=== PATIENT | male | born 1990 | race Two or more races ===

== ENCOUNTER 2016-05-06 12:12 | Emergency (ER) | payer OTHER ==
[~2016-05-06] VITALS: Ht 198.1 cm; Wt 135.7 kg
[~2016-05-06 12:12] MED LIST: ADDERALL XR 1515 MG PO; ADDERALL XR 2020 MG PO; ADDERALL XR 2525 MG PO; AMBIEN10 MG PO; ATIVAN2 MG PO; BENZTROPINE MESY1 MG PO; CARTIA XT120 MG PO; CHLORDIAZEPOXID25 MG PO; CLARITIN10 M3 PO; CLONIDINE PO; CONCERTA18 MG PO; CONCERTA27 MG PO; DESYREL 150 MG150 MG PO; DESYREL100 MG PO; FLONASE16 G1 BOTH NARES; FOLIC ACID1 MG PO; GABAPENTIN100 MG PO; HYDROCHLOROTHIA25 MG PO; KLONOPIN1 MG PO; LATUDA80 MG PO; LEVAQUIN500 MG PO; LIBRIUM25 MG PO; LISINOPRIL20 MG PO; MELOXICAM15 MG PO; MOTRIN600 MG PO; MOTRIN800 MG PO; MUCINEX D ER T1 EACH PO; NAPROSYN500 MG PO; NEURONTIN600 MG PO; NICOTINE PATCH1 EAC2 TD; OXYCODONE HCL10 MG PO; PAXIL10 MG PO; PAXIL20 MG PO; PERCOCET 10/1 TABLET PO; PREDNISONE10 M1 PO; PROPRANOLOL HCL60 MG PO; QUETIAPINE FUM200 MG PO; RISPERDAL1 MG PO; ROBITUSSIN100 MG/5 M PO; SERTRALINE HCL50 MG PO; TESSALON PERLE100 MG PO; THIAMINE HCL100 MG PO; TORADOL10 MG PO; TRAMADOL HCL50 MG PO; Thiamine,Vitamin B1 PO; ULTRACET1 TABLET PO; ULTRAM50 MG PO; VALIUM5 MG PO; VYVANSE30 MG PO; VYVANSE50 MG PO; ZOLOFT100 MG PO; ZOLPIDEM TARTRA10 MG PO
[2016-05-06 12:46] VITALS: BP 148/93
== END 2016-05-06 15:18 | disposition home or self-care (01) ==
LOC: RME 12:12 → EME 12:12 → RME 15:18
DX: J02.9 Acute pharyngitis, unspecified (principal); J03.90 Acute tonsillitis, unspecified; I10 Essential (primary) hypertension; F90.9 Attention-deficit hyperactivity disorder, unspecified type; F31.9 Bipolar disorder, unspecified; F17.200 Nicotine dependence, unspecified, uncomplicated
CPT/HCPCS: 87651 90; 99281; 99283; J1100

== ENCOUNTER 2016-05-19 18:50 | Emergency (ER) | payer OTHER ==
[~2016-05-19] VITALS: Ht 198.1 cm; Wt 138.5 kg
[2016-05-19 20:04] LABS: CHLORIDE 107 mEq/L (99-109); POTASSIUM 4.3 mEq/L (3.7-5.4); SODIUM 140 mEq/L (136-147)
[2016-05-19 20:06] LABS: GLUCOSE 102 mg/dL (70-99); HEMATOCRIT 42.9 % (38.0-50.0); MCH 30.8 PG (29.0-34.0); MCHC 34.7 G/DL (30.0-36.0); MCV 88.6 FL (86-99); MEAN PLAT.VOLUME 9.7 uM^3 (9.0-12.4); PLATELET COUNT 283 K/uL (156-360); RBC DIS.WIDTH-CV 14.8 % (11.8-14.6); RBC DIS.WIDTH-SD 47.8 % (39-53); RED BLOOD COUNT 4.84 M/uL (4.00-5.50); WHITE BLOOD COUNT 15.8 K/uL (4.1-10.2)
[2016-05-19 20:07] LABS: ANION GAP 13 MEQ/L (2-14)
[2016-05-19 20:10] LABS: GFR ESTIMATE (CALCULATED) > 59 mL/min/
[2016-05-19 20:11] LABS: UREA NITROGEN (BUN) 11 mg/dL (9-23)
[2016-05-19 20:56] LABS: TOTAL BILIRUBIN 0.1 mg/dL (0.0-1.0)
[2016-05-19 20:57] LABS: ALKALINE PHOSPHATASE 99 IU/L (3-129)
[2016-05-19 21:00] LABS: DIRECT BILIRUBIN 0.1 mg/dL (0.0-0.3)
[2016-05-19 21:02] LABS: D-DIMER ELISA 0.32 mg/L FEU (< 0.57)
[2016-05-19 21:25] LABS: ADD MIUA? NO; BILIRUBIN NEGATIVE; BLOOD NEGATIVE; COLOR YELLOW ((YELLOW)); GLUCOSE (STRIP) NEGATIVE; KETONES NEGATIVE; LEUKOCYTES NEGATIVE; NITRITE NEGATIVE; PROTEIN (STRIP) NEGATIVE; SPECIFIC GRAVITY 1.024 (1.000-1.030)
[2016-05-19 21:35] LABS: INFLUENZA A VIRAL ANTIGEN NEGATIVE; INFLUENZA B VIRAL ANTIGEN NEGATIVE
[2016-05-19 21:44] LABS: INTERNAL CONTROL VALID? YES; MONOSPOT (MONONUCLEOSIS SEROL) NEGATIVE
[2016-05-19] MEDS ORDERED: PREDNISONE20 MG PO (22:56)
[2016-05-19] MEDS ORDERED: TESSALON PERLE100 MG PO (22:56)
[2016-05-19] MEDS ORDERED: MOTRIN800 MG PO (22:56)
[2016-05-19] MEDS ORDERED: MUCINEX D ER T1 EACH PO (23:11)
[2016-05-19 23:26] VITALS: BP 141/91
== END 2016-05-19 23:28 | disposition home or self-care (01) ==
LOC: RME 18:50 → EME 18:50 → RME 23:28
PROVIDERS: Physician Assistant
DX: J06.9 Acute upper respiratory infection, unspecified (principal); J02.9 Acute pharyngitis, unspecified; E78.5 Hyperlipidemia, unspecified; I10 Essential (primary) hypertension; F17.200 Nicotine dependence, unspecified, uncomplicated; Z88.6 Allergy status to analgesic agent
CPT/HCPCS: 71020; 80048; 80076; 81003; 85027; 85379; 86308; 86664; 86665; 87502; 87651 90; 99281; 99285; J2930; J7030; J7512

== ENCOUNTER 2016-05-21 11:05 | Emergency (ER) | payer OTHER ==
[~2016-05-21] VITALS: Ht 198.1 cm; Wt 142.2 kg
[~2016-05-21 11:05] MED LIST changes: +PREDNISONE20 MG PO
[2016-05-21 11:50] LABS: HEMATOCRIT 41.6 % (38.0-50.0); MCH 30.7 PG (29.0-34.0); MCHC 34.6 G/DL (30.0-36.0); MCV 88.7 FL (86-99); MEAN PLAT.VOLUME 9.5 uM^3 (9.0-12.4); PLATELET COUNT 273 K/uL (156-360); RBC DIS.WIDTH-CV 15.2 % (11.8-14.6); RBC DIS.WIDTH-SD 49.1 % (39-53); RED BLOOD COUNT 4.69 M/uL (4.00-5.50); WHITE BLOOD COUNT 14.5 K/uL (4.1-10.2)
[2016-05-21 11:57] LABS: CHLORIDE 110 mEq/L (99-109); POTASSIUM 4.2 mEq/L (3.7-5.4); SODIUM 141 mEq/L (136-147)
[2016-05-21 12:00] LABS: GLUCOSE 107 mg/dL (70-99)
[2016-05-21 12:01] LABS: ANION GAP 10 MEQ/L (2-14)
[2016-05-21 12:02] LABS: TOTAL BILIRUBIN 0.1 mg/dL (0.0-1.0)
[2016-05-21 12:03] LABS: ALKALINE PHOSPHATASE 82 IU/L (3-129); GFR ESTIMATE (CALCULATED) > 59 mL/min/
[2016-05-21 12:04] LABS: UREA NITROGEN (BUN) 10 mg/dL (9-23)
[2016-05-21 12:06] LABS: CREATINE KINASE 94 IU/L (1-294)
[2016-05-21 13:31] LABS: ADD MIUA? NO; BILIRUBIN NEGATIVE; BLOOD NEGATIVE; COLOR YELLOW ((YELLOW)); GLUCOSE (STRIP) NEGATIVE; KETONES NEGATIVE; LEUKOCYTES NEGATIVE; NITRITE NEGATIVE; PH, URINE 5.5 (5-8); PROTEIN (STRIP) NEGATIVE; SPECIFIC GRAVITY 1.026 (1.000-1.030); UCUL ADDED? NO; UROBILINOGEN 0.2 MG/DL (0.2-1.0)
[2016-05-21 13:55] LABS: ADD MEDTOX COMMENT Y; AMPHETAMINE NEGATIVE (500 ng/mL); BARBITURATES PRESUMPTIVE POSITIVE (200 ng/mL); BENZODIAZEPINES NEGATIVE (150 ng/mL); COCAINE NEGATIVE (150 ng/mL); INTERNAL CONTROLS VALID? YES; METHADONE NEGATIVE (200 ng/mL); METHAMPHETAMINE NEGATIVE (500 ng/mL); OPIATES (MORPHINE) NEGATIVE (100 ng/mL); OXYCODONE NEGATIVE (100 ng/mL); PHENCYCLIDINE NEGATIVE (25 ng/mL); PROPOXYPHENE NEGATIVE (300 ng/mL); THC CANNABINOIDS NEGATIVE (50 ng/mL); TRICYCLIC ANTIDEPRESSANTS NEGATIVE (300 ng/mL)
[2016-05-21] MEDS ORDERED: IBUPROFEN800 MG PO (13:55)
[2016-05-21 14:45] VITALS: BP 127/93
== END 2016-05-21 14:47 | disposition home or self-care (01) ==
LOC: EME → EDBD 11:05 → EME 14:47
PROVIDERS: Nurse Practitioner Family
DX: F10.188 Alcohol abuse with other alcohol-induced disorder (principal); R25.2 Cramp and spasm; J06.9 Acute upper respiratory infection, unspecified; I10 Essential (primary) hypertension; Z88.6 Allergy status to analgesic agent; Z88.5 Allergy status to narcotic agent; Z88.8 Allergy status to other drugs, medicaments and biological substances; F17.200 Nicotine dependence, unspecified, uncomplicated
CPT/HCPCS: 80053; 81003; 82550; 84999; 85027; 99281; 99284; J1885; J7030

== ENCOUNTER 2016-05-29 10:19 | Emergency (ER) | payer OTHER ==
[~2016-05-29] VITALS: Ht 198.1 cm; Wt 138.0 kg
[~2016-05-29 10:19] MED LIST changes: +IBUPROFEN800 MG PO
[2016-05-29] MEDS ORDERED: CLONIDINE HCL0.1 MG PO (13:04)
[2016-05-29 13:27] VITALS: BP 142/97
== END 2016-05-29 13:28 | disposition home or self-care (01) ==
LOC: EME 10:19
DX: G89.29 Other chronic pain (principal); F11.20 Opioid dependence, uncomplicated; I10 Essential (primary) hypertension; F31.9 Bipolar disorder, unspecified; E78.5 Hyperlipidemia, unspecified; F10.10 Alcohol abuse, uncomplicated; F90.9 Attention-deficit hyperactivity disorder, unspecified type; F17.200 Nicotine dependence, unspecified, uncomplicated; Z88.6 Allergy status to analgesic agent; Z88.5 Allergy status to narcotic agent; Z88.8 Allergy status to other drugs, medicaments and biological substances
CPT/HCPCS: 99281; 99283

== ENCOUNTER → 2016-06-26 | Outpatient (CLI) | payer MEDICARE, OTHER ==
[~2016-06-26] MED LIST changes: +CLONIDINE HCL0.1 MG PO
== END | disposition home or self-care (01) ==
LOC: CDC 14:10
DX: R00.0 Tachycardia, unspecified (principal); G89.4 Chronic pain syndrome
CPT/HCPCS: 93000

== ENCOUNTER 2016-07-15 12:06 | Emergency (ER) | payer OTHER ==
[~2016-07-15] VITALS: Ht 198.1 cm; Wt 139.3 kg
[2016-07-15] MEDS ORDERED: AUGMENTIN875 MG PO (15:41)
[2016-07-15 16:01] VITALS: BP 165/84
== END 2016-07-15 16:01 | disposition home or self-care (01) ==
LOC: EME 12:06
PROC: 3E0234Z Introduction of Serum, Toxoid and Vaccine into Muscle, Percutaneous Approach (ICD-10-PCS; principal; 2016-07-15)
DX: S41.152A Open bite of left upper arm, initial encounter (principal); S40.022A Contusion of left upper arm, initial encounter; Y04.1XXA Assault by human bite, initial encounter; Z23 Encounter for immunization; F17.200 Nicotine dependence, unspecified, uncomplicated
CPT/HCPCS: 99281; 99284

== ENCOUNTER 2016-07-17 15:17 | Inpatient (IN) | payer OTHER ==
[~2016-07-17] VITALS: Ht 198.1 cm; Wt 139.4 kg
[~2016-07-17 15:17] MED LIST changes: +AUGMENTIN875 MG PO
[2016-07-17 17:22] LABS: CHLORIDE 107 mEq/L (99-109); HEMATOCRIT 43.3 % (38.0-50.0); MCH 30.1 PG (29.0-34.0); MCHC 33.9 G/DL (30.0-36.0); MCV 88.5 FL (86-99); MEAN PLAT.VOLUME 9.5 uM^3 (9.0-12.4); PLATELET COUNT 271 K/uL (156-360); POTASSIUM 4.1 mEq/L (3.7-5.4); RBC DIS.WIDTH-CV 13.6 % (11.8-14.6); RBC DIS.WIDTH-SD 44.3 % (39-53); RED BLOOD COUNT 4.89 M/uL (4.00-5.50); SODIUM 139 mEq/L (136-147); WHITE BLOOD COUNT 13.5 K/uL (4.1-10.2)
[2016-07-17 17:23] LABS: MAGNESIUM 2.2 mg/dL (1.3-2.7)
[2016-07-17 17:24] LABS: GLUCOSE 80 mg/dL (70-99)
[2016-07-17 17:26] LABS: ANION GAP 11 MEQ/L (2-14)
[2016-07-17 17:28] LABS: GFR ESTIMATE (CALCULATED) > 59 mL/min/
[2016-07-17 17:29] LABS: UREA NITROGEN (BUN) 10 mg/dL (9-23)
[2016-07-17 18:23] LABS: SERUM ETHYL ALCOHOL < 10 mg/dL
[2016-07-17] MEDS ORDERED: TESSALON PERLE100 MG PO (20:18)
[2016-07-17] MEDS ORDERED: XTAMPZA ER13.5 MG PO (20:19)
[2016-07-17] MEDS ORDERED: GABAPENTIN800 MG PO (20:19)
[2016-07-17] MEDS ORDERED: METOPROLOL TART50 MG PO (20:24)
[2016-07-17] MEDS ORDERED: ADDERALL5 MG PO (20:26)
[2016-07-17] MEDS ORDERED: ADDERALL XR 2020 MG PO (20:26)
[2016-07-17] MEDS ORDERED: IBUPROFEN800 MG PO (20:27)
[2016-07-17] MEDS ORDERED: NICODERM CQ1 EAC2 TD (20:28)
[2016-07-17 23:33] VITALS: BP 148/80
[2016-07-18 07:15] LABS: EOSINOPHIL (%) 1.2 % (0-5); EOSINOPHIL COUNT 0.1 K/uL (0-0.3); HEMATOCRIT 41.1 % (38.0-50.0); IMMATURE GRANULOCYTE COUNT 0.1 K/uL; MCH 29.8 PG (29.0-34.0); MCHC 33.3 G/DL (30.0-36.0); MCV 89.5 FL (86-99); MEAN PLAT.VOLUME 9.9 uM^3 (9.0-12.4); MONOCYTE (%) 8.6 % (3-12); PLATELET COUNT 256 K/uL (156-360); RBC DIS.WIDTH-SD 45.8 % (39-53); RED BLOOD COUNT 4.59 M/uL (4.00-5.50); WHITE BLOOD COUNT 11.3 K/uL (4.1-10.2)
[2016-07-18 07:39] LABS: ALKALINE PHOSPHATASE 78 IU/L (3-129); ANION GAP 9 MEQ/L (2-14); CHLORIDE 107 MEQ/L (99-109); GAMMA-GT 84 IU/L (4-73); GFR ESTIMATE (CALCULATED) > 59 mL/min/; GLUCOSE 92 mg/dL (70-99); POTASSIUM 3.6 MEQ/L (3.7-5.4); SAMPLE HEMOLYSIS CHECK 0; SAMPLE ICTERIC CHECK 0; SAMPLE LIPEMIA CHECK 0; SODIUM 138 MEQ/L (136-147); TOTAL BILIRUBIN 0.5 MG/DL (0.0-1.0); UREA NITROGEN (BUN) 9 mg/dL (9-23)
[2016-07-18 08:25] VITALS: BP 129/80
[2016-07-18 11:42] VITALS: BP 141/95
[2016-07-18 16:47] VITALS: BP 149/86
[2016-07-18 19:12] LABS: ADD MIUA? NO; BILIRUBIN NEGATIVE; BLOOD NEGATIVE; COLOR STRAW ((YELLOW)); GLUCOSE (STRIP) NEGATIVE; KETONES NEGATIVE; LEUKOCYTES NEGATIVE; NITRITE NEGATIVE; PROTEIN (STRIP) NEGATIVE; SPECIFIC GRAVITY 1.009 (1.000-1.030); UROBILINOGEN 0.2 MG/DL (0.2-1.0)
[2016-07-18 23:20] VITALS: BP 123/86
[2016-07-19 07:58] VITALS: BP 143/69
[2016-07-19 12:11] VITALS: BP 120/78
[2016-07-19 17:14] VITALS: BP 130/68
[2016-07-19 19:04] VITALS: BP 141/90
[2016-07-19 22:15] VITALS: BP 153/95
[2016-07-20 02:33] VITALS: BP 122/71
[2016-07-20 09:43] VITALS: BP 125/70
[2016-07-20 11:32] VITALS: BP 109/59
[2016-07-20 17:08] VITALS: BP 131/76
[2016-07-20] MEDS ORDERED: LISINOPRIL20 MG PO (17:31)
[2016-07-20] MEDS ORDERED: CHLORDIAZEPOXID25 MG PO (17:31)
[2016-07-20] MEDS ORDERED: OXCARBAZEPINE300 MG PO (17:31)
[2016-07-20] MEDS ORDERED: THIAMINE HCL100 MG PO (18:25)
[2016-07-20] MEDS ORDERED: FOLIC ACID1 MG PO ×2 (18:25→18:30)
== END 2016-07-20 19:15 | disposition home or self-care (01) | DRG 897 ==
LOC: EME 15:17 → 5EAST 21:00 → EDOF 21:00 → 5EAST 22:55
PROVIDERS: Emergency Medicine; Internal Medicine
DX: F10.231 Alcohol dependence with withdrawal delirium (principal); F33.9 Major depressive disorder, recurrent, unspecified; L03.114 Cellulitis of left upper limb; M51.9 Unspecified thoracic, thoracolumbar and lumbosacral intervertebral disc disorder; I10 Essential (primary) hypertension; E86.0 Dehydration; E66.01 Morbid (severe) obesity due to excess calories; F31.9 Bipolar disorder, unspecified; F17.200 Nicotine dependence, unspecified, uncomplicated; F90.2 Attention-deficit hyperactivity disorder, combined type; Z88.6 Allergy status to analgesic agent; Z88.8 Allergy status to other drugs, medicaments and biological substances; S41.152A Open bite of left upper arm, initial encounter; Z68.35 Body mass index [BMI] 35.0-35.9, adult; Y93.89 Activity, other specified; Y92.019 Unspecified place in single-family (private) house as the place of occurrence of the external cause
CPT/HCPCS: 80048; 80053; 81003; 82977; 83735; 85025; 85027; 99281; 99284; 99285; G0480; J3360; J7030

== ENCOUNTER 2016-08-12 08:39 | Day surgery (SDC) | payer OTHER ==
[~2016-08-12] VITALS: Ht 198.1 cm; Wt 138.0 kg
[~2016-08-12 08:39] MED LIST changes: +ADDERALL5 MG PO; +GABAPENTIN800 MG PO; +METOPROLOL TART50 MG PO; +NICODERM CQ1 EAC2 TD; +OXCARBAZEPINE300 MG PO; +XTAMPZA ER13.5 MG PO
[2016-08-12] MEDS ORDERED: ADDERALL20 MG PO (09:02)
[2016-08-12 09:09] VITALS: BP 131/88
[2016-08-12 12:56] VITALS: BP 140/87
== END 2016-08-12 13:10 | disposition home or self-care (01) ==
LOC: SDC 08:39
DX: G89.29 Other chronic pain (principal); J38.5 Laryngeal spasm; Z53.09 Procedure and treatment not carried out because of other contraindication; M51.16 Intervertebral disc disorders with radiculopathy, lumbar region; G47.30 Sleep apnea, unspecified; I10 Essential (primary) hypertension; F41.8 Other specified anxiety disorders; F31.9 Bipolar disorder, unspecified; F17.210 Nicotine dependence, cigarettes, uncomplicated; Z79.899 Other long term (current) drug therapy; G40.909 Epilepsy, unspecified, not intractable, without status epilepticus
CPT/HCPCS: J0330; J0690; J1100; J2250; J3010

== ENCOUNTER 2016-08-19 12:14 | Day surgery (SDC) | payer OTHER ==
[~2016-08-19] VITALS: Ht 198.1 cm; Wt 138.3 kg
[~2016-08-19 12:14] MED LIST changes: +ADDERALL20 MG PO
[2016-08-19 12:51] VITALS: BP 127/81
[2016-08-19 18:16] VITALS: BP 142/76
[2016-08-19 18:32] VITALS: BP 129/87
== END 2016-08-19 18:38 | disposition home or self-care (01) ==
LOC: SDC 12:14
DX: G89.4 Chronic pain syndrome (principal); M51.16 Intervertebral disc disorders with radiculopathy, lumbar region; M54.41 Lumbago with sciatica, right side; G47.30 Sleep apnea, unspecified; I10 Essential (primary) hypertension; F41.8 Other specified anxiety disorders; R00.0 Tachycardia, unspecified; F17.210 Nicotine dependence, cigarettes, uncomplicated; Z79.891 Long term (current) use of opiate analgesic; Z79.899 Other long term (current) drug therapy
CPT/HCPCS: 72020; 76000; 94640; C1767; C1778; J0131; J0330; J0690; J1100; J1170; J1885; J2250; J2405; J3010; J3370

== ENCOUNTER 2016-08-27 20:53 | Emergency (ER) | payer OTHER ==
[~2016-08-27] VITALS: Ht 198.1 cm; Wt 138.1 kg
[2016-08-27 21:39] LABS: HEMATOCRIT 46.3 % (38.0-50.0); MCH 30.1 PG (29.0-34.0); MCHC 34.6 G/DL (30.0-36.0); MEAN PLAT.VOLUME 9.3 uM^3 (9.0-12.4); PLATELET COUNT 377 K/uL (156-360); RBC DIS.WIDTH-CV 12.9 % (11.8-14.6); RED BLOOD COUNT 5.32 M/uL (4.00-5.50); WHITE BLOOD COUNT 14.9 K/uL (4.1-10.2)
[2016-08-27 21:54] LABS: CHLORIDE 105 mEq/L (99-109); POTASSIUM 3.9 mEq/L (3.7-5.4); SODIUM 139 mEq/L (136-147)
[2016-08-27 21:57] LABS: GLUCOSE 105 mg/dL (70-99)
[2016-08-27 21:58] LABS: ANION GAP 16 MEQ/L (2-14)
[2016-08-27 21:59] LABS: TOTAL BILIRUBIN 0.4 mg/dL (0.0-1.0)
[2016-08-27 22:00] LABS: ALKALINE PHOSPHATASE 92 IU/L (3-129); GFR ESTIMATE (CALCULATED) > 59 mL/min/
[2016-08-27 22:01] LABS: UREA NITROGEN (BUN) 8 mg/dL (9-23)
[2016-08-27 22:04] LABS: CREATINE KINASE 200 IU/L (1-294)
[2016-08-28] MEDS ORDERED: DOXYCYCLINE HY100 MG PO (00:55)
[2016-08-28 01:10] VITALS: BP 112/78
[2016-08-28 01:14] LABS: ADD MIUA? NO; BILIRUBIN NEGATIVE; BLOOD NEGATIVE; COLOR YELLOW ((YELLOW)); GLUCOSE (STRIP) NEGATIVE; KETONES 5; LEUKOCYTES NEGATIVE; NITRITE NEGATIVE; PROTEIN (STRIP) NEGATIVE; UCUL ADDED? NO; UROBILINOGEN 0.2 MG/DL (0.2-1.0)
[2016-08-28 01:24] LABS: AMPHETAMINE NEGATIVE (500 ng/mL); BARBITURATES NEGATIVE (200 ng/mL); BENZODIAZEPINES PRESUMPTIVE POSITIVE (150 ng/mL); COCAINE NEGATIVE (150 ng/mL); INTERNAL CONTROLS VALID? YES; METHADONE NEGATIVE (200 ng/mL); METHAMPHETAMINE NEGATIVE (500 ng/mL); OPIATES (MORPHINE) NEGATIVE (100 ng/mL); OXYCODONE NEGATIVE (100 ng/mL); PHENCYCLIDINE NEGATIVE (25 ng/mL); PROPOXYPHENE NEGATIVE (300 ng/mL); THC CANNABINOIDS NEGATIVE (50 ng/mL); TRICYCLIC ANTIDEPRESSANTS NEGATIVE (300 ng/mL)
[2016-08-28 01:25] LABS: ADD MEDTOX COMMENT Y
[2016-08-28 01:51] LABS: SPECIFIC GRAVITY 1.084 (1.000-1.030)
[2016-08-28 02:18] LABS: BENZODIAZEPINES QUANT VALUE 0 NG/ML; BENZODIAZEPINES, URINE SCREEN Negative (200 ng/mL)
== END 2016-08-28 01:14 | disposition home or self-care (01) ==
LOC: EME 20:53
PROVIDERS: Emergency Medicine; Physician Assistant
DX: G89.18 Other acute postprocedural pain (principal); D72.829 Elevated white blood cell count, unspecified; Z96.9 Presence of functional implant, unspecified; Z88.6 Allergy status to analgesic agent
CPT/HCPCS: 71275; 80053; 81003; 82550; 83605; 84999; 85027; 86140; 87040; 99281; 99285; J2060; J3010; J7030

== ENCOUNTER 2016-09-16 18:07 | Observation (INO) | payer OTHER ==
[~2016-09-16] VITALS: Ht 198.1 cm; Wt 132.1 kg
[~2016-09-16 18:07] MED LIST changes: +DOXYCYCLINE HY100 MG PO
[2016-09-16 20:54] LABS: BASOPHIL COUNT 0.1 K/uL (0-0.1); EOSINOPHIL (%) 0.1 % (0-5); HEMATOCRIT 49.7 % (38.0-50.0); IMMATURE GRANULOCYTE (%) 0.6 % (0.0-0.7); IMMATURE GRANULOCYTE COUNT 0.1 K/uL; INSTRUMENT ABS NEUTROPHIL CT 12.2 K/uL; LYMPHOCYTE COUNT 3.6 K/uL (1.0-2.8); MCH 29.9 PG (29.0-34.0); MCHC 34.4 G/DL (30.0-36.0); MCV 86.9 FL (86-99); MEAN PLAT.VOLUME 9.6 uM^3 (9.0-12.4); MONOCYTE (%) 8.7 % (3-12); MONOCYTE COUNT 1.5 K/uL (0-0.8); NEUTROPHIL (%) 69.7 % (45-76); NEUTROPHIL COUNT 12.2 K/uL (1.8-6.4); PLATELET COUNT 366 K/uL (156-360); RBC DIS.WIDTH-CV 13.2 % (11.8-14.6); RED BLOOD COUNT 5.72 M/uL (4.00-5.50); WHITE BLOOD COUNT 17.5 K/uL (4.1-10.2)
[2016-09-16 21:03] LABS: CHLORIDE 105 mEq/L (99-109); POTASSIUM 3.8 mEq/L (3.7-5.4); SODIUM 139 mEq/L (136-147)
[2016-09-16 21:05] LABS: GLUCOSE 101 mg/dL (70-99)
[2016-09-16 21:06] LABS: ANION GAP 14 MEQ/L (2-14)
[2016-09-16 21:07] LABS: TOTAL BILIRUBIN 0.6 mg/dL (0.0-1.0)
[2016-09-16 21:08] LABS: SERUM ETHYL ALCOHOL < 10 mg/dL
[2016-09-16 21:09] LABS: ALKALINE PHOSPHATASE 105 IU/L (3-129); GFR ESTIMATE (CALCULATED) > 59 mL/min/
[2016-09-16 21:10] LABS: UREA NITROGEN (BUN) 11 mg/dL (9-23)
[2016-09-16 21:12] LABS: LIPASE 16 U/L (1.0-51.0)
[2016-09-16 21:14] LABS: TROP-I INTERPRETATION NEGATIVE; TROPONIN-I < 0.01 ng/mL (0.0-0.30)
[2016-09-16 21:32] LABS: AMPHETAMINE NEGATIVE (500 ng/mL); BARBITURATES NEGATIVE (200 ng/mL); BENZODIAZEPINES PRESUMPTIVE POSITIVE (150 ng/mL); COCAINE PRESUMPTIVE POSITIVE (150 ng/mL); INTERNAL CONTROLS VALID? YES; METHADONE NEGATIVE (200 ng/mL); METHAMPHETAMINE NEGATIVE (500 ng/mL); OPIATES (MORPHINE) NEGATIVE (100 ng/mL); OXYCODONE NEGATIVE (100 ng/mL); PHENCYCLIDINE NEGATIVE (25 ng/mL); PROPOXYPHENE NEGATIVE (300 ng/mL); THC CANNABINOIDS NEGATIVE (50 ng/mL); TRICYCLIC ANTIDEPRESSANTS NEGATIVE (300 ng/mL)
[2016-09-16 21:33] LABS: ADD MEDTOX COMMENT Y
[2016-09-16 21:59] LABS: BENZODIAZEPINES, URINE SCREEN POSITIVE (200 ng/mL)
[2016-09-16] MEDS ORDERED: LATUDA60 MG PO (23:30)
[2016-09-16] MEDS ORDERED: ADDERALL10 MG PO (23:31)
[2016-09-16] MEDS ORDERED: LOPRESSOR50 MG PO (23:32)
[2016-09-16] MEDS ORDERED: DEXTROAMP-AMPHE25 MG PO (23:32)
[2016-09-16] MEDS ORDERED: VITAMIN B-150 MG PO (23:32)
[2016-09-17 01:43] VITALS: BP 127/90
[2016-09-17 04:45] VITALS: BP 120/59
[2016-09-17 07:07] VITALS: BP 141/85
[2016-09-17 10:15] LABS: BASOPHIL COUNT 0.1 K/uL (0-0.1); EOSINOPHIL (%) 0.2 % (0-5); HEMATOCRIT 48.2 % (38.0-50.0); IMMATURE GRANULOCYTE (%) 0.6 % (0.0-0.7); IMMATURE GRANULOCYTE COUNT 0.1 K/uL; INSTRUMENT ABS NEUTROPHIL CT 8.2 K/uL; LYMPHOCYTE COUNT 3.3 K/uL (1.0-2.8); MCH 29.7 PG (29.0-34.0); MCHC 33.6 G/DL (30.0-36.0); MCV 88.3 FL (86-99); MEAN PLAT.VOLUME 10.2 uM^3 (9.0-12.4); MONOCYTE (%) 10.1 % (3-12); MONOCYTE COUNT 1.3 K/uL (0-0.8); NEUTROPHIL (%) 63.4 % (45-76); NEUTROPHIL COUNT 8.2 K/uL (1.8-6.4); PLATELET COUNT 335 K/uL (156-360); RBC DIS.WIDTH-CV 13.3 % (11.8-14.6); RED BLOOD COUNT 5.46 M/uL (4.00-5.50); WHITE BLOOD COUNT 12.9 K/uL (4.1-10.2)
[2016-09-17 10:25] LABS: CHLORIDE 103 mEq/L (99-109); POTASSIUM 4.8 mEq/L (3.7-5.4); SODIUM 139 mEq/L (136-147)
[2016-09-17 10:27] LABS: GLUCOSE 89 mg/dL (70-99)
[2016-09-17 10:28] LABS: ANION GAP 13 MEQ/L (2-14)
[2016-09-17 10:29] LABS: TROP-I INTERPRETATION NEGATIVE; TROPONIN-I < 0.01 ng/mL (0.0-0.30)
[2016-09-17 10:30] LABS: ALKALINE PHOSPHATASE 96 IU/L (3-129)
[2016-09-17 10:31] LABS: GFR ESTIMATE (CALCULATED) > 59 mL/min/
[2016-09-17 10:32] LABS: UREA NITROGEN (BUN) 9 mg/dL (9-23)
[2016-09-17 10:35] LABS: TOTAL BILIRUBIN 0.8 mg/dL (0.0-1.0)
[2016-09-17 10:44] VITALS: BP 136/80
[2016-09-17 14:26] VITALS: BP 127/65
[2016-09-17] MEDS ORDERED: CITALOPRAM HBR10 MG PO (15:20)
[2016-09-17 16:07] LABS: TROP-I INTERPRETATION NEGATIVE; TROPONIN-I < 0.01 ng/mL (0.0-0.30)
[2016-09-17] MEDS ORDERED: SEROQUEL100 MG PO (20:55)
== END 2016-09-17 19:45 ==
LOC: EME 18:07 → EDOF 09-17 00:15 → 5WEST 09-17 00:15
PROVIDERS: Emergency Medicine; Internal Medicine
DX: R07.9 Chest pain, unspecified (principal); F19.939 Other psychoactive substance use, unspecified with withdrawal, unspecified; F31.9 Bipolar disorder, unspecified; E78.5 Hyperlipidemia, unspecified; I10 Essential (primary) hypertension; F17.200 Nicotine dependence, unspecified, uncomplicated; R00.0 Tachycardia, unspecified; F14.90 Cocaine use, unspecified, uncomplicated; G89.29 Other chronic pain; E66.9 Obesity, unspecified; M51.9 Unspecified thoracic, thoracolumbar and lumbosacral intervertebral disc disorder; Z91.14 Patient's other noncompliance with medication regimen; F10.10 Alcohol abuse, uncomplicated; R06.02 Shortness of breath
CPT/HCPCS: 71010; 80053; 81003; 83690; 84484; 84999; 85025; 90839; 93005; 99281; 99284; G0378; G0480; J2060; J7030

== ENCOUNTER 2016-09-17 19:42 | Inpatient (IN) | payer OTHER ==
[~2016-09-17] VITALS: Ht 198.1 cm; Wt 132.1 kg
[~2016-09-17 19:42] MED LIST changes: +ADDERALL10 MG PO; +CITALOPRAM HBR10 MG PO; +DEXTROAMP-AMPHE25 MG PO; +LATUDA60 MG PO; +LOPRESSOR50 MG PO; +VITAMIN B-150 MG PO
[2016-09-17 19:56] VITALS: BP 137/106
[2016-09-17 20:13] VITALS: BP 137/106
[2016-09-17 20:32] VITALS: BP 137/106
[2016-09-17] MEDS ORDERED: SEROQUEL100 MG PO (20:55)
[2016-09-17 22:31] VITALS: BP 134/76
[2016-09-18 07:24] VITALS: BP 101/57
[2016-09-18 16:14] VITALS: BP 124/81
[2016-09-19 07:51] VITALS: BP 128/72
[2016-09-19 15:32] VITALS: BP 128/86
[2016-09-20 08:04] VITALS: BP 132/72
[2016-09-20] MEDS ORDERED: ZIPRASIDONE HCL80 MG PO (09:44)
[2016-09-20] MEDS ORDERED: CITALOPRAM HBR20 MG PO (09:44)
[2016-09-20] MEDS ORDERED: HYDROXYZINE PAM50 MG PO (09:44)
[2016-09-20] MEDS ORDERED: DESYREL100 MG PO (09:49)
== END 2016-09-20 10:42 | disposition home or self-care (01) | DRG 885 ==
LOC: 1WEST 19:42
DX: F31.9 Bipolar disorder, unspecified (principal); R45.851 Suicidal ideations; F19.19 Other psychoactive substance abuse with unspecified psychoactive substance-induced disorder; F90.9 Attention-deficit hyperactivity disorder, unspecified type; F41.9 Anxiety disorder, unspecified; I10 Essential (primary) hypertension; E78.5 Hyperlipidemia, unspecified; F10.10 Alcohol abuse, uncomplicated; F13.90 Sedative, hypnotic, or anxiolytic use, unspecified, uncomplicated; Z72.89 Other problems related to lifestyle; R44.0 Auditory hallucinations
CPT/HCPCS: 97150 GO; 97165 GO; Q0177

== ENCOUNTER 2016-09-22 16:32 | Emergency (ER) | payer OTHER ==
[~2016-09-22] VITALS: Ht 200.7 cm; Wt 133.6 kg
[~2016-09-22 16:32] MED LIST changes: +CITALOPRAM HBR20 MG PO; +HYDROXYZINE PAM50 MG PO; +SEROQUEL100 MG PO; +ZIPRASIDONE HCL80 MG PO
[2016-09-22 17:52] LABS: EOSINOPHIL (%) 0.7 % (0-5); EOSINOPHIL COUNT 0.1 K/uL (0-0.3); HEMATOCRIT 43.8 % (38.0-50.0); IMMATURE GRANULOCYTE (%) 0.4 % (0.0-0.7); INSTRUMENT ABS NEUTROPHIL CT 6.6 K/uL; MCH 29.8 PG (29.0-34.0); MCHC 33.8 G/DL (30.0-36.0); MCV 88.1 FL (86-99); MEAN PLAT.VOLUME 9.8 uM^3 (9.0-12.4); MONOCYTE (%) 9.3 % (3-12); NEUTROPHIL (%) 61.3 % (45-76); NEUTROPHIL COUNT 6.6 K/uL (1.8-6.4); PLATELET COUNT 293 K/uL (156-360); RBC DIS.WIDTH-CV 13.4 % (11.8-14.6); RBC DIS.WIDTH-SD 43.6 % (39-53); RED BLOOD COUNT 4.97 M/uL (4.00-5.50); WHITE BLOOD COUNT 10.8 K/uL (4.1-10.2)
[2016-09-22 18:07] LABS: CHLORIDE 108 mEq/L (99-109); SODIUM 142 mEq/L (136-147)
[2016-09-22 18:09] LABS: GLUCOSE 93 mg/dL (70-99)
[2016-09-22 18:10] LABS: ANION GAP 13 MEQ/L (2-14)
[2016-09-22 18:12] LABS: SERUM ETHYL ALCOHOL < 10 mg/dL
[2016-09-22 18:13] LABS: GFR ESTIMATE (CALCULATED) > 59 mL/min/
[2016-09-22 18:14] LABS: UREA NITROGEN (BUN) 9 mg/dL (9-23)
[2016-09-22 18:19] LABS: POTASSIUM 3.8 mEq/L (3.7-5.4)
[2016-09-22 20:09] LABS: AMPHETAMINE NEGATIVE (500 ng/mL); BARBITURATES NEGATIVE (200 ng/mL); BENZODIAZEPINES PRESUMPTIVE POSITIVE (150 ng/mL); COCAINE NEGATIVE (150 ng/mL); INTERNAL CONTROLS VALID? YES; METHADONE NEGATIVE (200 ng/mL); METHAMPHETAMINE NEGATIVE (500 ng/mL); OPIATES (MORPHINE) NEGATIVE (100 ng/mL); OXYCODONE NEGATIVE (100 ng/mL); PHENCYCLIDINE NEGATIVE (25 ng/mL); PROPOXYPHENE NEGATIVE (300 ng/mL); THC CANNABINOIDS NEGATIVE (50 ng/mL); TRICYCLIC ANTIDEPRESSANTS NEGATIVE (300 ng/mL)
[2016-09-22 20:10] LABS: ADD MEDTOX COMMENT Y
[2016-09-22 21:04] LABS: BENZODIAZEPINES, URINE SCREEN POSITIVE (200 ng/mL)
[2016-09-22] MEDS ORDERED: LIBRIUM25 MG PO (22:31)
[2016-09-22 22:59] VITALS: BP 141/94
== END 2016-09-22 22:59 | disposition home or self-care (01) ==
LOC: EME 16:32
PROVIDERS: Emergency Medicine
DX: F41.9 Anxiety disorder, unspecified (principal); F19.10 Other psychoactive substance abuse, uncomplicated; F10.239 Alcohol dependence with withdrawal, unspecified; F31.5 Bipolar disorder, current episode depressed, severe, with psychotic features; I10 Essential (primary) hypertension; F17.200 Nicotine dependence, unspecified, uncomplicated
CPT/HCPCS: 80048; 84999; 85025; 90839; 99281; 99284; G0480

== ENCOUNTER 2016-10-06 22:03 | Emergency (ER) | payer OTHER ==
[~2016-10-06] VITALS: Ht 198.1 cm; Wt 133.6 kg
[2016-10-07] MEDS ORDERED: LIBRIUM25 MG PO (01:43)
[2016-10-07] MEDS ORDERED: ATARAX,VISTARIL25 MG PO (01:43)
[2016-10-07 01:52] LABS: ADD MIUA? YES; BILIRUBIN NEGATIVE; BLOOD NEGATIVE; COLOR YELLOW ((YELLOW)); GLUCOSE (STRIP) NEGATIVE; KETONES NEGATIVE; LEUKOCYTES SMALL; NITRITE NEGATIVE; PROTEIN (STRIP) NEGATIVE; SPECIFIC GRAVITY 1.015 (1.000-1.030)
[2016-10-07 02:13] VITALS: BP 136/82
[2016-10-07 02:17] LABS: BACTERIA RARE /HPF; EPITHELIAL CELLS RARE /HPF; MUCUS TRACE /LPF; RED BLOOD CELLS 0-5 /HPF (0-5); UCUL ADDED? NO
== END 2016-10-07 02:16 | disposition home or self-care (01) ==
LOC: EME 22:03 → RME 22:03
PROVIDERS: Physician Assistant
DX: T43.221A Poisoning by selective serotonin reuptake inhibitors, accidental (unintentional), initial encounter (principal); Z76.0 Encounter for issue of repeat prescription; E78.5 Hyperlipidemia, unspecified; I10 Essential (primary) hypertension; G40.909 Epilepsy, unspecified, not intractable, without status epilepticus; Z88.6 Allergy status to analgesic agent; F17.200 Nicotine dependence, unspecified, uncomplicated
CPT/HCPCS: 81003; 99281; 99283

== ENCOUNTER 2016-10-21 15:48 | Inpatient (IN) | payer OTHER ==
[~2016-10-21] VITALS: Ht 198.1 cm; Wt 130.0 kg
[~2016-10-21 15:48] MED LIST changes: +ATARAX,VISTARIL25 MG PO
[2016-10-21 18:08] LABS: AMPHETAMINE NEGATIVE (500 ng/mL); BARBITURATES NEGATIVE (200 ng/mL); BENZODIAZEPINES PRESUMPTIVE POSITIVE (150 ng/mL); COCAINE NEGATIVE (150 ng/mL); INTERNAL CONTROLS VALID? YES; METHADONE NEGATIVE (200 ng/mL); METHAMPHETAMINE NEGATIVE (500 ng/mL); OPIATES (MORPHINE) NEGATIVE (100 ng/mL); OXYCODONE NEGATIVE (100 ng/mL); PHENCYCLIDINE NEGATIVE (25 ng/mL); PROPOXYPHENE NEGATIVE (300 ng/mL); THC CANNABINOIDS NEGATIVE (50 ng/mL); TRICYCLIC ANTIDEPRESSANTS NEGATIVE (300 ng/mL)
[2016-10-21 18:09] LABS: ADD MEDTOX COMMENT Y
[2016-10-21 18:10] LABS: HEMATOCRIT 47.4 % (38.0-50.0); MCH 29.5 PG (29.0-34.0); MCHC 33.5 G/DL (30.0-36.0); MCV 87.9 FL (86-99); MEAN PLAT.VOLUME 9.4 uM^3 (9.0-12.4); PLATELET COUNT 299 K/uL (156-360); RBC DIS.WIDTH-CV 13.5 % (11.8-14.6); RBC DIS.WIDTH-SD 43.1 % (39-53); RED BLOOD COUNT 5.39 M/uL (4.00-5.50)
[2016-10-21 18:22] LABS: CHLORIDE 100 mEq/L (99-109); POTASSIUM 4.1 mEq/L (3.7-5.4); SODIUM 137 mEq/L (136-147)
[2016-10-21 18:24] LABS: GLUCOSE 138 mg/dL (70-99)
[2016-10-21 18:25] LABS: ANION GAP 14 MEQ/L (2-14)
[2016-10-21 18:27] LABS: SERUM ETHYL ALCOHOL < 10 mg/dL
[2016-10-21 18:28] LABS: GFR ESTIMATE (CALCULATED) > 59 mL/min/
[2016-10-21 18:29] LABS: UREA NITROGEN (BUN) 18 mg/dL (9-23)
[2016-10-21 19:05] LABS: SALICYLATE < 5.0 MG/DL (15-30)
[2016-10-21 19:55] VITALS: BP 133/84
[2016-10-21 19:55] LABS: BENZODIAZEPINES, URINE SCREEN POSITIVE (200 ng/mL)
[2016-10-21 20:16] VITALS: BP 133/84
[2016-10-21] MEDS ORDERED: CLONIDINE HCL0.1 MG PO (20:17)
[2016-10-21] MEDS ORDERED: LISINOPRIL20 MG PO (20:18)
[2016-10-22 07:37] VITALS: BP 109/58
[2016-10-22 15:23] VITALS: BP 117/61
[2016-10-23 07:47] VITALS: BP 130/90
[2016-10-23 13:08] LABS: ADD MIUA? NO; BILIRUBIN NEGATIVE; BLOOD NEGATIVE; COLOR YELLOW ((YELLOW)); GLUCOSE (STRIP) NEGATIVE; KETONES NEGATIVE; LEUKOCYTES NEGATIVE; NITRITE NEGATIVE; PROTEIN (STRIP) NEGATIVE; SPECIFIC GRAVITY 1.006 (1.000-1.030); UCUL ADDED? NO; UROBILINOGEN 0.2 MG/DL (0.2-1.0)
[2016-10-23 15:36] VITALS: BP 126/58
[2016-10-24 07:20] VITALS: BP 126/74
[2016-10-24] MEDS ORDERED: NICOTINE PATCH1 EAC2 TD (10:22)
[2016-10-24] MEDS ORDERED: DULOXETINE HCL60 MG PO (10:22)
[2016-10-24] MEDS ORDERED: BUSPAR10 MG PO (10:22)
[2016-10-24] MEDS ORDERED: LOPRESSOR50 MG PO (10:22)
== END 2016-10-24 15:08 | disposition home or self-care (01) | DRG 885 ==
LOC: EME 15:48 → 1WEST 18:35 → EDOF 18:35 → 1WEST 18:35
PROVIDERS: Emergency Medicine; Nurse Practitioner Family
DX: F33.1 Major depressive disorder, recurrent, moderate (principal); R45.851 Suicidal ideations; F19.20 Other psychoactive substance dependence, uncomplicated; F10.20 Alcohol dependence, uncomplicated; Y90.0 Blood alcohol level of less than 20 mg/100 ml; F41.9 Anxiety disorder, unspecified; I10 Essential (primary) hypertension; E78.5 Hyperlipidemia, unspecified; F17.200 Nicotine dependence, unspecified, uncomplicated; Z91.5 Personal history of self-harm
CPT/HCPCS: 80048; 81003; 84999; 85027; 90839; 99281; 99285; G0480; Q0177

== ENCOUNTER 2016-11-20 10:07 | Inpatient (IN) | payer OTHER ==
[~2016-11-20] VITALS: Ht 193 cm; Wt 140.8 kg
[~2016-11-20 10:07] MED LIST changes: +BUSPAR10 MG PO; +DULOXETINE HCL60 MG PO
[2016-11-20 10:45] LABS: EOSINOPHIL (%) 0.5 % (0-5); EOSINOPHIL COUNT 0.1 K/uL (0-0.3); HEMATOCRIT 41.5 % (38.0-50.0); IMMATURE GRANULOCYTE (%) 0.8 % (0.0-0.7); IMMATURE GRANULOCYTE COUNT 0.1 K/uL; INSTRUMENT ABS NEUTROPHIL CT 9.2 K/uL; LYMPHOCYTE COUNT 2.7 K/uL (1.0-2.8); MCH 29.3 PG (29.0-34.0); MCHC 34.2 G/DL (30.0-36.0); MCV 85.7 FL (86-99); MEAN PLAT.VOLUME 9.1 uM^3 (9.0-12.4); MONOCYTE (%) 7.9 % (3-12); NEUTROPHIL COUNT 9.2 K/uL (1.8-6.4); PLATELET COUNT 295 K/uL (156-360); RBC DIS.WIDTH-CV 14.2 % (11.8-14.6); RBC DIS.WIDTH-SD 44.1 % (39-53); RED BLOOD COUNT 4.84 M/uL (4.00-5.50); WHITE BLOOD COUNT 13.1 K/uL (4.1-10.2)
[2016-11-20 10:53] LABS: CHLORIDE 103 mEq/L (99-109); POTASSIUM 4.2 mEq/L (3.7-5.4); SODIUM 138 mEq/L (136-147)
[2016-11-20 10:55] LABS: GLUCOSE 95 mg/dL (70-99)
[2016-11-20 10:56] LABS: ANION GAP 14 MEQ/L (2-14)
[2016-11-20 10:57] LABS: TOTAL BILIRUBIN 0.5 mg/dL (0.0-1.0)
[2016-11-20 10:58] LABS: SERUM ETHYL ALCOHOL < 10 mg/dL
[2016-11-20 10:59] LABS: GFR ESTIMATE (CALCULATED) > 59 mL/min/
[2016-11-20 11:00] LABS: ALKALINE PHOSPHATASE 123 IU/L (3-129)
[2016-11-20 11:01] LABS: DIRECT BILIRUBIN 0.2 mg/dL (0.0-0.3); UREA NITROGEN (BUN) 13 mg/dL (9-23)
[2016-11-20 11:02] LABS: SALICYLATE < 5.0 MG/DL (15-30)
[2016-11-20 11:45] LABS: ADD MIUA? NO; BILIRUBIN NEGATIVE; BLOOD NEGATIVE; COLOR YELLOW ((YELLOW)); GLUCOSE (STRIP) NEGATIVE; KETONES NEGATIVE; LEUKOCYTES NEGATIVE; NITRITE NEGATIVE; PROTEIN (STRIP) NEGATIVE; SPECIFIC GRAVITY 1.011 (1.000-1.030); UROBILINOGEN 0.2 MG/DL (0.2-1.0)
[2016-11-20 11:59] LABS: AMPHETAMINE NEGATIVE (500 ng/mL); BARBITURATES NEGATIVE (200 ng/mL); BENZODIAZEPINES NEGATIVE (150 ng/mL); COCAINE NEGATIVE (150 ng/mL); INTERNAL CONTROLS VALID? YES; METHADONE NEGATIVE (200 ng/mL); METHAMPHETAMINE NEGATIVE (500 ng/mL); OPIATES (MORPHINE) NEGATIVE (100 ng/mL); OXYCODONE NEGATIVE (100 ng/mL); PHENCYCLIDINE NEGATIVE (25 ng/mL); PROPOXYPHENE NEGATIVE (300 ng/mL); THC CANNABINOIDS NEGATIVE (50 ng/mL); TRICYCLIC ANTIDEPRESSANTS NEGATIVE (300 ng/mL)
[2016-11-20 16:37] VITALS: BP 139/86
[2016-11-20 16:40] VITALS: BP 139/86
[2016-11-21 08:28] VITALS: BP 106/57
[2016-11-21 11:53] VITALS: BP 109/61
[2016-11-21 15:33] VITALS: BP 104/52
[2016-11-22 07:56] VITALS: BP 108/73
[2016-11-22 16:28] VITALS: BP 112/68
[2016-11-23 09:12] VITALS: BP 138/82
[2016-11-23 17:00] VITALS: BP 130/65
[2016-11-24 07:55] VITALS: BP 116/74
[2016-11-24 15:35] VITALS: BP 112/55
[2016-11-25 07:38] VITALS: BP 117/71
[2016-11-25] MEDS ORDERED: DESYREL100 MG PO (09:58)
[2016-11-25] MEDS ORDERED: DIVALPROEX SOD500 MG PO (09:58)
[2016-11-25] MEDS ORDERED: RISPERIDONE1 MG PO (09:58)
[2016-11-25] MEDS ORDERED: DULOXETINE HCL60 MG PO (09:58)
[2016-11-25] MEDS ORDERED: GABAPENTIN400 MG PO (09:58)
[2016-11-25] MEDS ORDERED: BUSPAR15 MG PO (09:58)
== END 2016-11-25 16:19 | disposition home or self-care (01) | DRG 885 ==
LOC: EME 10:07 → 1WEST 14:24 → EDOF 14:24 → ENRESERV 16:17 → 1WEST 16:30
PROVIDERS: Emergency Medicine
DX: F33.9 Major depressive disorder, recurrent, unspecified (principal); T50.902A Poisoning by unspecified drugs, medicaments and biological substances, intentional self-harm, initial encounter; F10.20 Alcohol dependence, uncomplicated; F16.90 Hallucinogen use, unspecified, uncomplicated; F19.10 Other psychoactive substance abuse, uncomplicated; F90.9 Attention-deficit hyperactivity disorder, unspecified type; F41.0 Panic disorder [episodic paroxysmal anxiety]; I10 Essential (primary) hypertension; E78.5 Hyperlipidemia, unspecified; F17.200 Nicotine dependence, unspecified, uncomplicated
CPT/HCPCS: 80048; 80076; 81003; 85025; 87651 90; 90837; 93005; 97150 GO; 97165 GO; 99281; 99284; G0480; J7030

== ENCOUNTER 2017-01-17 16:14 | Inpatient (IN) | payer OTHER ==
[~2017-01-17] VITALS: Ht 198.1 cm; Wt 131.9 kg
[~2017-01-17 16:14] MED LIST changes: +BUSPAR15 MG PO; +DIVALPROEX SOD500 MG PO; +GABAPENTIN400 MG PO; +RISPERIDONE1 MG PO
[2017-01-17 16:45] LABS: EOSINOPHIL (%) 0.2 % (0-5); HEMATOCRIT 45.4 % (38.0-50.0); IMMATURE GRANULOCYTE (%) 0.6 % (0.0-0.7); IMMATURE GRANULOCYTE COUNT 0.1 K/uL; INSTRUMENT ABS NEUTROPHIL CT 11.8 K/uL; LYMPHOCYTE COUNT 3.5 K/uL (1.0-2.8); MCH 29.2 PG (29.0-34.0); MCHC 34.6 G/DL (30.0-36.0); MCV 84.5 FL (86-99); MEAN PLAT.VOLUME 9.1 uM^3 (9.0-12.4); MONOCYTE (%) 7.4 % (3-12); MONOCYTE COUNT 1.2 K/uL (0-0.8); NEUTROPHIL (%) 70.4 % (45-76); NEUTROPHIL COUNT 11.8 K/uL (1.8-6.4); PLATELET COUNT 386 K/uL (156-360); RBC DIS.WIDTH-CV 13.6 % (11.8-14.6); RBC DIS.WIDTH-SD 42.2 % (39-53); RED BLOOD COUNT 5.37 M/uL (4.00-5.50); WHITE BLOOD COUNT 16.7 K/uL (4.1-10.2)
[2017-01-17 16:58] LABS: CHLORIDE 104 mEq/L (99-109); POTASSIUM 3.5 mEq/L (3.7-5.4); SODIUM 136 mEq/L (136-147)
[2017-01-17 17:01] LABS: GLUCOSE 107 mg/dL (70-99)
[2017-01-17 17:02] LABS: ANION GAP 15 MEQ/L (2-14)
[2017-01-17 17:03] LABS: TOTAL BILIRUBIN 0.4 mg/dL (0.0-1.0)
[2017-01-17 17:04] LABS: ALKALINE PHOSPHATASE 102 IU/L (3-129); GFR ESTIMATE (CALCULATED) > 59 mL/min/; SERUM ETHYL ALCOHOL < 10 mg/dL
[2017-01-17 17:06] LABS: UREA NITROGEN (BUN) 11 mg/dL (9-23)
[2017-01-17 18:05] LABS: ADD MEDTOX COMMENT Y; AMPHETAMINE NEGATIVE (500 ng/mL); BARBITURATES NEGATIVE (200 ng/mL); BENZODIAZEPINES PRESUMPTIVE POSITIVE (150 ng/mL); COCAINE NEGATIVE (150 ng/mL); INTERNAL CONTROLS VALID? YES; METHADONE NEGATIVE (200 ng/mL); METHAMPHETAMINE NEGATIVE (500 ng/mL); OPIATES (MORPHINE) NEGATIVE (100 ng/mL); OXYCODONE NEGATIVE (100 ng/mL); PHENCYCLIDINE NEGATIVE (25 ng/mL); PROPOXYPHENE NEGATIVE (300 ng/mL); THC CANNABINOIDS NEGATIVE (50 ng/mL); TRICYCLIC ANTIDEPRESSANTS NEGATIVE (300 ng/mL)
[2017-01-17 18:48] LABS: BENZODIAZEPINES QUANT VALUE 0 NG/ML; BENZODIAZEPINES, URINE SCREEN Negative (200 ng/mL)
[2017-01-17] MEDS ORDERED: GABAPENTIN800 MG PO (19:32)
[2017-01-17] MEDS ORDERED: CYMBALTA60 MG PO (19:34)
[2017-01-17 20:12] VITALS: BP 152/94
[2017-01-18 07:50] VITALS: BP 122/84
[2017-01-18 08:07] LABS: BASOPHIL COUNT 0.1 K/uL (0-0.1); EOSINOPHIL (%) 0.6 % (0-5); EOSINOPHIL COUNT 0.1 K/uL (0-0.3); HEMATOCRIT 47.2 % (38.0-50.0); IMMATURE GRANULOCYTE (%) 1.1 % (0.0-0.7); IMMATURE GRANULOCYTE COUNT 0.2 K/uL; INSTRUMENT ABS NEUTROPHIL CT 8.8 K/uL; LYMPHOCYTE COUNT 3.5 K/uL (1.0-2.8); MCH 28.7 PG (29.0-34.0); MCHC 33.5 G/DL (30.0-36.0); MCV 85.7 FL (86-99); MEAN PLAT.VOLUME 9.5 uM^3 (9.0-12.4); MONOCYTE (%) 9.4 % (3-12); MONOCYTE COUNT 1.3 K/uL (0-0.8); NEUTROPHIL (%) 63.4 % (45-76); NEUTROPHIL COUNT 8.8 K/uL (1.8-6.4); PLATELET COUNT 401 K/uL (156-360); RBC DIS.WIDTH-CV 13.8 % (11.8-14.6); RBC DIS.WIDTH-SD 43.4 % (39-53); RED BLOOD COUNT 5.51 M/uL (4.00-5.50); WHITE BLOOD COUNT 13.9 K/uL (4.1-10.2)
[2017-01-18 15:30] VITALS: BP 86/53
[2017-01-19 07:48] VITALS: BP 132/82
[2017-01-19 10:45] VITALS: BP 118/64
[2017-01-19 15:30] VITALS: BP 109/62
[2017-01-20 07:52] VITALS: BP 138/92
[2017-01-20 15:43] VITALS: BP 111/66
[2017-01-21 07:28] VITALS: BP 137/84
[2017-01-21 16:04] VITALS: BP 133/77
[2017-01-22 07:40] VITALS: BP 107/59
[2017-01-22] MEDS ORDERED: BUSPAR15 MG PO (10:03)
[2017-01-22] MEDS ORDERED: CYMBALTA60 MG PO (10:03)
[2017-01-22] MEDS ORDERED: PAROXETINE HCL10 MG PO (10:03)
[2017-01-22] MEDS ORDERED: CLONAZEPAM1 MG PO (10:03)
[2017-01-22] MEDS ORDERED: GABAPENTIN800 MG PO (10:03)
[2017-01-22] MEDS ORDERED: RISPERIDONE1 MG PO (10:03)
[2017-01-22] MEDS ORDERED: DESYREL100 MG PO (10:03)
== END 2017-01-22 12:30 | disposition home or self-care (01) | DRG 880 ==
LOC: EME 16:14 → 1WEST 18:35 → EDOF 18:35 → 1WEST 19:58
PROVIDERS: Emergency Medicine; Psychiatry & Neurology Psychiatry
DX: F41.1 Generalized anxiety disorder (principal); F19.288 Other psychoactive substance dependence with other psychoactive substance-induced disorder; R45.851 Suicidal ideations; F19.239 Other psychoactive substance dependence with withdrawal, unspecified; F31.9 Bipolar disorder, unspecified; K64.9 Unspecified hemorrhoids; I10 Essential (primary) hypertension; F17.210 Nicotine dependence, cigarettes, uncomplicated; Z91.5 Personal history of self-harm; Z23 Encounter for immunization; F10.10 Alcohol abuse, uncomplicated
CPT/HCPCS: 80053; 84999; 85025; 90686; 90839; 94640 76; 97150 GO; 97165 GO; 99202; 99281; 99285; G0480; J2060; Q0177

== ENCOUNTER 2017-05-07 12:40 | Emergency (ER) | payer OTHER ==
[~2017-05-07] VITALS: Ht 198.1 cm; Wt 141.3 kg
[~2017-05-07 12:40] MED LIST changes: +CLONAZEPAM1 MG PO; +CYMBALTA60 MG PO; +PAROXETINE HCL10 MG PO
[2017-05-07 13:07] LABS: HEMATOCRIT 45.7 % (38.0-50.0); HEMOGLOBIN 15.9 G/DL (12.5-16.6); MCH 30.4 PG (29.0-34.0); MCHC 34.8 G/DL (30.0-36.0); MCV 87.4 FL (86-99); PLATELET COUNT 308 K/uL (156-360); RBC DIS.WIDTH-CV 14.1 % (11.8-14.6); RBC DIS.WIDTH-SD 45.4 % (39-53); RED BLOOD COUNT 5.23 M/uL (4.00-5.50); WHITE BLOOD COUNT 13.8 K/uL (4.1-10.2)
[2017-05-07 13:15] LABS: CHLORIDE 105 mEq/L (99-109); POTASSIUM 4.3 mEq/L (3.7-5.4); SODIUM 136 mEq/L (136-147)
[2017-05-07 13:17] LABS: GLUCOSE 104 mg/dL (70-99)
[2017-05-07 13:21] LABS: CREATININE 0.8 mg/dL (0.6-1.3); GFR ESTIMATE (CALCULATED) > 59 mL/min/ (58.99-99999)
[2017-05-07 13:22] LABS: UREA NITROGEN (BUN) 11 mg/dL (9-23)
[2017-05-07 13:27] LABS: TROP-I INTERPRETATION NEGATIVE; TROPONIN-I 0.02 ng/mL (0.0-0.30)
[2017-05-07 15:40] LABS: TROP-I INTERPRETATION NEGATIVE; TROPONIN-I < 0.01 ng/mL (0.0-0.30)
[2017-05-07] MEDS ORDERED: NAPROSYN500 MG PO (16:02)
[2017-05-07 16:12] VITALS: BP 122/68
== END 2017-05-07 16:14 | disposition home or self-care (01) ==
LOC: EME 12:40
PROVIDERS: Nurse Practitioner Family
DX: R07.89 Other chest pain (principal); I10 Essential (primary) hypertension; E78.5 Hyperlipidemia, unspecified; F90.9 Attention-deficit hyperactivity disorder, unspecified type; F31.9 Bipolar disorder, unspecified; F17.200 Nicotine dependence, unspecified, uncomplicated; Z88.6 Allergy status to analgesic agent; Z88.5 Allergy status to narcotic agent; Z88.8 Allergy status to other drugs, medicaments and biological substances
CPT/HCPCS: 71046; 80048; 84484; 85027; 93005; 99281; 99285

== ENCOUNTER 2017-09-02 12:47 | Emergency (ER) | payer OTHER ==
[~2017-09-02] VITALS: Ht 198.1 cm; Wt 137.8 kg
[2017-09-02 14:22] LABS: HEMATOCRIT 44.4 % (38.0-50.0); HEMOGLOBIN 15.7 G/DL (12.5-16.6); MCH 30.4 PG (29.0-34.0); MCHC 35.4 G/DL (30.0-36.0); PLATELET COUNT 303 K/uL (156-360); RBC DIS.WIDTH-CV 13.4 % (11.8-14.6); RBC DIS.WIDTH-SD 42.5 % (39-53); RED BLOOD COUNT 5.16 M/uL (4.00-5.50); WHITE BLOOD COUNT 12.4 K/uL (4.1-10.2)
[2017-09-02 14:32] LABS: CHLORIDE 104 mEq/L (99-109); POTASSIUM 4.3 mEq/L (3.7-5.4); SODIUM 135 mEq/L (136-147)
[2017-09-02 14:34] LABS: GLUCOSE 93 mg/dL (70-99)
[2017-09-02 14:37] LABS: CREATININE 0.8 mg/dL (0.6-1.3); GFR ESTIMATE (CALCULATED) > 59 mL/min/ (58.99-99999)
[2017-09-02 14:38] LABS: UREA NITROGEN (BUN) 9 mg/dL (9-23)
[2017-09-02 14:42] LABS: TROP-I INTERPRETATION NEGATIVE; TROPONIN-I < 0.01 ng/mL (0.0-0.30)
[2017-09-02 16:37] LABS: TROP-I INTERPRETATION NEGATIVE; TROPONIN-I < 0.01 ng/mL (0.0-0.30)
[2017-09-02 16:52] LABS: AMPHETAMINE NEGATIVE (500 ng/mL); BARBITURATES NEGATIVE (200 ng/mL); BENZODIAZEPINES NEGATIVE (150 ng/mL); BUPRENORPHINE NEGATIVE (10 ng/mL); COCAINE NEGATIVE (150 ng/mL); METHADONE NEGATIVE (200 ng/mL); METHAMPHETAMINE NEGATIVE (500 ng/mL); OPIATES (MORPHINE) NEGATIVE (100 ng/mL); OXYCODONE NEGATIVE (100 ng/mL); PHENCYCLIDINE NEGATIVE (25 ng/mL); PROPOXYPHENE NEGATIVE (300 ng/mL); THC CANNABINOIDS PRESUMPTIVE POSITIVE (50 ng/mL); TRICYCLIC ANTIDEPRESSANTS NEGATIVE (300 ng/mL)
[2017-09-02] MEDS ORDERED: LOPRESSOR50 MG PO (17:21)
[2017-09-02 17:50] VITALS: BP 86/73
== END 2017-09-02 17:51 | disposition home or self-care (01) ==
LOC: EME 12:47
PROVIDERS: Nurse Practitioner Family
DX: R07.89 Other chest pain (principal); R00.0 Tachycardia, unspecified; I10 Essential (primary) hypertension; E78.5 Hyperlipidemia, unspecified; R01.1 Cardiac murmur, unspecified; R56.9 Unspecified convulsions; G47.9 Sleep disorder, unspecified; F90.9 Attention-deficit hyperactivity disorder, unspecified type; F41.9 Anxiety disorder, unspecified; F32.9 Major depressive disorder, single episode, unspecified; F31.9 Bipolar disorder, unspecified; F17.200 Nicotine dependence, unspecified, uncomplicated; Z86.59 Personal history of other mental and behavioral disorders; Z87.19 Personal history of other diseases of the digestive system; Z91.5 Personal history of self-harm; Z88.6 Allergy status to analgesic agent; Z88.8 Allergy status to other drugs, medicaments and biological substances
CPT/HCPCS: 71046; 80048; 84484; 84999; 85027; 93005; 99281; 99285; J7030